=== PATIENT | male | born 1980 | race Caucasian/White ===

== ENCOUNTER 2020-10-29 10:12 | Emergency (ER) | payer OTHER ==
[~2020-10-29] VITALS: Ht 177.8 cm; Wt 300.0 kg
[2020-10-29 11:27] LABS: BASO % 0 % (0-3); EOS # 0.2 x10^3/uL (0.0-0.7); EOS % 2 % (0-3); HEMOGLOBIN 8.7 g/dL (13.0-17.5); LYMPH # 0.8 x10^3/uL (1.0-4.8); LYMPH % 9 % (24-48); MEAN CORPUSCULAR HEMOGLOBIN 25 pg (25-35); MEAN CORPUSCULAR HGB CONC 31 g/dL (31-37); MEAN CORPUSCULAR VOLUME 80 fL (79-100); MONO # 0.6 x10^3/uL (0.0-1.1); MONO % 7 % (0-9); NEUT % 81 % (31-73); PLATELET COUNT 364 x10^3/uL (140-400); RED BLOOD COUNT 3.51 x10^6/uL (4.30-5.70); RED CELL DISTRIBUTION WIDTH 22.3 % (11.5-14.5); WHITE BLOOD COUNT 8.7 x10^3/uL (4.0-11.0)
[2020-10-29] MEDS ORDERED: NEOMY/BACITR/POLYMYXIN OINT PACKET. TP ONE (12:00)
[2020-10-29] MEDS ORDERED: MUPI1OIN6 TP (12:05)
--- NOTE | 2020-10-29 12:14 | PHYS DOC ---
Past History Past Medical History: Anemia, High Cholesterol, Hypertension, Other Additional Past Medical Histor: DVT, morbid obesity Past Surgical History: Cholecystectomy Smoking: Non-smoker Alcohol Use: None Drug Use: None General Adult EDM: Chief Complaint: LOWER EXT PAIN HPI: HPI: 40-year-old male presents via EMS with report of bleeding from pressure wounds to the back of his left thigh which started today. Patient is currently on preventative Coumadin with history of DVT. Nursing facility became concerned given bleeding from these wounds. Patient is morbidly obese and nonambulatory at baseline. Denies other symptoms. Review of Systems: Review of Systems: Constitutional: Denies fever or chills Eyes: Denies redness or eye pain HENT: Denies nasal congestion or sore throat Respiratory: Denies cough or shortness of breath Cardiovascular: Denies chest pain or palpitations GI: Denies abdominal pain, nausea, or vomiting : Denies dysuria or hematuria Musculoskeletal: Denies back pain; reports left leg pain Integument: Reports pressure ulcers to left posterior leg Neurologic: Denies headache, focal weakness or sensory changes Complete systems were reviewed and found to be within normal limits, except as documented in this note. Allergies: Allergies: Allergies Coded Allergies Type Severity Reaction Last Updated Verified vancomycin Allergy Unknown 10/29/20 Yes Physical Exam: PE: Constitutional: Well developed, morbidly obese, no acute distress, non-toxic appearance HENT: Normocephalic, atraumatic Eyes: Conjunctiva normal, no discharge Neck: Normal range of motion, supple Lungs & Thorax: No respiratory distress, equal chest rise and fall Skin: Warm, dry, pressure ulceration with left posterior leg, no active bleeding currently Extremities: Tenderness at site of pressure ulceration, DP and PT +2 Neurologic: Alert and oriented X 3, no focal deficits noted Psychologic: Affect normal, judgment normal Current Patient Data: Labs: Laboratory Tests Test 10/29/20 10:44 White Blood Count 8.7 x10^3/uL (4.0-11.0) Red Blood Count 3.51 x10^6/uL (4.30-5.70) L Hemoglobin 8.7 g/dL (13.0-17.5) L Hematocrit 28.0 % (39.0-53.0) L Mean Corpuscular Volume 80 fL (79-100) Mean Corpuscular Hemoglobin 25 pg (25-35) Mean Corpuscular Hemoglobin Concent 31 g/dL (31-37) Red Cell Distribution Width 22.3 % (11.5-14.5) H Platelet Count 364 x10^3/uL (140-400) Neutrophils (%) (Auto) 81 % (31-73) H Lymphocytes (%) (Auto) 9 % (24-48) L Monocytes (%) (Auto) 7 % (0-9) Eosinophils (%) (Auto) 2 % (0-3) Basophils (%) (Auto) 0 % (0-3) Neutrophils # (Auto) 7.0 x10^3uL (1.8-7.7) Lymphocytes # (Auto) 0.8 x10^3/uL (1.0-4.8) L Monocytes # (Auto) 0.6 x10^3/uL (0.0-1.1) Eosinophils # (Auto) 0.2 x10^3/uL (0.0-0.7) Basophils # (Auto) 0.0 x10^3/uL (0.0-0.2) Prothrombin Time 14.7 SEC (9.4-11.4) H Prothrombin Time INR 1.4 (0.9-1.1) H Activated Partial Thromboplast Time 30 SEC (23-33) Vital Signs: Vital Signs Date Time Temp Pulse Resp B/P (MAP) Pulse Ox O2 Delivery O2 Flow Rate FiO2 10/29/20 11:23 74 16 114/56 (75) 100 Nasal Cannula 3.0 10/29/20 10:25 101.4 EKG: EKG: [] Radiology/Procedures: Radiology/Procedures: [] Heart Score: C/O Chest Pain: N/A Course & Med Decision Making: Course & Med Decision Making Pertinent Lab studies reviewed. (See chart for details) Morbidly obese patient presents via EMS with report of bleeding from pressure ulcerations on the back of his left leg. Patient with history of use of Coumadin given history of DVT. Patient's vital signs stable. No active bleeding noted. No active infection appreciated. Afebrile. CBC with signs of anemia. Patient does report history of anemia. WBC within normal limits. INR subtherapeutic at 1.4. Wound dressed. Will prescribe antibiotic ointment for preventative treatment. Patient stable for discharge with outpatient follow-up with PCP. Discussed fin guidos and plan with patient, who acknowledges understanding and agreement. Willie Disclaimer: Willie Disclaimer: This electronic medical record was generated, in whole or in part, using a voice recognition dictation system. Departure Departure: Impression: Primary Impression: Pressure ulcer of lower extremity Qualified Codes: L89.899 - Pressure ulcer of other site, unspecified stage Additional Impression: Subtherapeutic anticoagulation Disposition: HOME / SELF CARE / HOMELESS (back to [facility] and rehab) Condition: STABLE Referrals: AAYUSH DAVIS MD (PCP) Patient Instructions: Anticoagulation, Generic, Pressure Ulcer Additional Instructions: Your Coumadin level is currently subtheraputic to 1.4. Please have your doctor adjust your medications and recheck level. Do not soak your wound. You may shower. Clean wound daily with soap and water. Change dressing 3 times daily using a nonadherent dressing. Use prescribed antibiotic ointment to prevent infection with each dressing change. You may benefit from follow up with a wound care doctor. [facility]: call [phone] for an appoin tment Scripts Mupirocin (Mupirocin) 1 Gm Oin.pf.mingo 1 MINGO TP TID for Pressure Ulcers for 7 Days, #22 GM 0 Refills apply to affected area(s) Prov: CHANTAL VEGA DO 10/29/20 CHANTAL VEGA DO Oct 29, 2020 12:14
[2020-10-29 12:17] LABS: ANISOCYTOSIS MOD; PLT ESTIMATE ADEQUATE (ADEQUATE)
[2020-10-29 14:01] VITALS: BP 116/61
== END 2020-10-29 15:24 | disposition home or self-care (01) ==
LOC: ER 10:12
DX: L89.899 Pressure ulcer of other site, unspecified stage (principal); E78.00 Pure hypercholesterolemia, unspecified; I10 Essential (primary) hypertension; E66.01 Morbid (severe) obesity due to excess calories; Z68.45 Body mass index [BMI] 70 or greater, adult; Z86.718 Personal history of other venous thrombosis and embolism; Z86.2 Personal history of diseases of the blood and blood-forming organs and certain disorders involving the immune mechanism; Z88.1 Allergy status to other antibiotic agents
CPT/HCPCS: 36415; 85025; 85610; 85730; 99284

== ENCOUNTER 2021-01-18 14:08 | Emergency (ER) | payer OTHER ==
[~2021-01-18] VITALS: Ht 167.6 cm; Wt 180.5 kg
[~2021-01-18 14:08] MED LIST: MUPI1OIN6 TP
[2021-01-18] MEDS ORDERED: IPRATRPIUM/ALBUTEROL 0.5/2.5MG 3 ML NEBU. NEB ONE ×2 (14:15)
--- NOTE | 2021-01-18 14:15 | PHYS DOC ---
Past History Past Medical History: Anemia, High Cholesterol, Hypertension, Other Additional Past Medical Histor: DVT, morbid obesity (LESTER BLANC DO) Past Surgical History: Cholecystectomy (LESTER BLANC DO) Smoking: Non-smoker Alcohol Use: None Drug Use: None (LESTER BLANC DO) General Adult EDM: Chief Complaint: SHORTNESS OF BREATH HPI: HPI: 40-year-old male past medical history of morbid obesity, hypertension, hyperlipidemia, anemia, lymphedema, congestive heart failure, bronchitis on 5LNC at baseline and chronic DVT on Coumadin, presents the ED brought in by EMS from [facility] with concern for low oxygen level, requiring BiPAP on arrival. Patient planes of shortness of breath but states the BiPAP has improved his symptoms. Was vaccinated for Covid with change of vaccine. Normally follows at [facility]. [facility] papers were reviewed and patient was started on doxycycline yesterday for a rash to his posterior thighs. (LESTER BLANC DO) Review of Systems: Review of Systems: Constitutional: Denies fever or chills Eyes: Denies change in visual acuity HENT: Denies nasal congestion or sore throat Respiratory: Denies cough or hemoptysis Cardiovascular: Denies chest pain or edema GI: Denies nausea or vomiting : Denies dysuria or hematuria Musculoskeletal: Denies back pain or joint pain Integument: Denies diaphoresis or desquamation Neurologic: Denies headache, focal weakness or sensory changes Endocrine: Denies polyuria or polydipsia Lymphatic: Denies swollen glands Psychiatric: Denies depression or anxiety (LESTER BLANC DO) Allergies: Allergies: Allergies Coded Allergies Type Severity Reaction Last Updated Verified vancomycin Allergy Unknown 10/29/20 Yes (LESTER BLANC DO) Physical Exam: PE: Constitutional: On BiPAP, no respiratory distress, saturating in the 90s, morbid obesity, afebrile HENT: Normocephalic, atraumatic, Eyes: EOMI, conjunctiva normal, no discharge. Neck: Normal range of motion, supple, Cardiovascular: S1/2 present, regular rhythm Lungs & Thorax: Speaking in full sentences, bilateral equal chest rise, no tachypnea or increased work of breathing Abdomen: soft, no tenderness, large ventral hernia approximately 12 x 12 cm Skin: Warm, dry, Extremities: No tenderness, no cyanosis, significant bilateral lymphedema Neurologic: Alert and oriented X 3, normal motor function, normal sensory function, no focal deficits noted. [] Psychologic: Affect normal, judgement normal, mood normal. [] (LESTER BLANC DO) EKG: EKG: Sinus rhythm 80 bpm, no axis deviation, QTC 463, no T wave inversion, no ST elevation or ST depression, no active chest pain (LESTER BLANC DO) Radiology/Procedures: Radiology/Procedures: IMAGING REPORT Signed PATIENT: MELE NICOLE LACCOUNT: [id number] : 1980 LOCATION: ER AGE: 40 SEX: M EXAM STATUS: REG ER ORD. PHYSICIAN: LESTER BLANC DO REASON: soa PROCEDURE: PORTABLE CHEST 1V PROCEDURE: XR CHEST 1V.01/18/2021 3:27 PM REASON FOR STUDY: Reason: soa / Spl. Instructions: / History: . COMPARISON: None. FINDINGS: Evaluation is limited by a large amount of overlying soft tissues. Allowing for this, there appears to be fairly extensive infiltrate through the right lung. The upper left lung appears relatively clear, but the left base is poorly seen. The heart is likely at least mildly enlarged. IMPRESSION: Limited study showing diffuse infiltrates, at least on the right side. Electronically signed by: Balta Iglesias Jr., MD (01/18/2021 3:28 PM) [id number] DICTATED AND SIGNED BY: BALTA IGLESIAS Jr, MD DATE: 01/18/21 1527 CC: AAYUSH DAVIS MD; LESTER BLANC DO ~MTH0 0 (LESTER BLANC DO) Heart Score: C/O Chest Pain: No Risk Factors: Risk Factors: DM, Current or recent (<one month) smoker, HTN, HLP, family history of CAD, obesity. Risk Scores: Score 0 - 3: 2.5% MACE over next 6 weeks - Discharge Home Score 4 - 6: 20.3% MACE over next 6 weeks - Admit for Clinical Observation Score 7 - 10: 72.7% MACE over next 6 weeks - Early Invasive Strategies (LESTER BLANC DO) Course & Med Decision Making: Course & Med Decision Making Pertinent Labs and Imaging studies reviewed. (See chart for details) Concern for hypercapnic respiratory failure, requiring BiPAP with suspected multifocal pneumonia. Therapeutic INR and normocytic anemia on labs. Will admit for further medical management. Patient in guarded condition. Patient stable at time of admission and agrees with plan. I have spoken with the patient and/or caregivers. I have explained the patient's condition, diagnosis and treatment plan based on the information available to me at this time. I have answered the patient's and/or caregivers questions and answered any concerns. The patient and/or caregivers have as good an understanding of the patient's diagnosis, condition and treatment plan as can be expected at this point. The patient has been stabilized within the capability of the emergency department. The patient will be transported for further care and management or will be moved to an observation or inpatient service. I have communicated with the staff or medical practitioner taking over this patient's care. (LESTER BLANC DO) Course & Med Decision Making See Dr. Blanc chart for details prior shift change. Pt. eventually transfered to [facility] without incident. Impression: 1. Respiratory Failure- Hypercarbic/ Hypoxia 2. Leukocytosis 12.1 3. Anemia hemoglobin 9.7 4. Morbid obesity (RAJENDRA SHIPLEY MD) Dragon Disclaimer: Dragon Disclaimer: This electronic medical record was generated, in whole or in part, using a voice recognition dictation system. (LESTER BLANC DO) Departure Departure: Impression: Primary Impression: Hypercapnic respiratory failure Additional Impressions: HCAP (healthcare-associated pneumonia) Normocytic anemia Disposition: [facility] (to [facility]) Admitting Physician: Mary Samayoa (LESTER BLANC DO) Condition: GUARDED Referrals: AAYUSH DAVIS MD (PCP) LESTER BLANC DO Jan 18, 2021 14:15 RAJENDRA SHIPLEY MD Jan 19, 2021 05:22
[2021-01-18] MEDS: DEXAMETHASONE SOD PHOS 10 MG/ML VIAL. IV ONE (14:39)
[2021-01-18] MEDS: IV NORMAL SALINE 1,000ML 1,000 ML IV SCH (14:40)
[2021-01-18 14:56] LABS: BGAS PH 7.31 (7.35-7.46)
[2021-01-18 14:59] LABS: BASO # 0.1 x10^3/uL (0.0-0.2); BASO % 1 % (0-3); EOS # 0.1 x10^3/uL (0.0-0.7); EOS % 1 % (0-3); HEMATOCRIT 31.8 % (39.0-53.0); HEMOGLOBIN 9.7 g/dL (13.0-17.5); LYMPH % 9 % (24-48); MEAN CORPUSCULAR HEMOGLOBIN 25 pg (25-35); MEAN CORPUSCULAR HGB CONC 31 g/dL (31-37); MEAN CORPUSCULAR VOLUME 80 fL (79-100); MONO # 0.8 x10^3/uL (0.0-1.1); MONO % 6 % (0-9); NEUT # 10.1 x10^3uL (1.8-7.7); NEUT % 83 % (31-73); PLATELET COUNT 407 x10^3/uL (140-400); RED BLOOD COUNT 3.97 x10^6/uL (4.30-5.70); RED CELL DISTRIBUTION WIDTH 19.3 % (11.5-14.5); WHITE BLOOD COUNT 12.1 x10^3/uL (4.0-11.0)
[2021-01-18 15:03] LABS: CALCIUM 8.4 mg/dL (8.5-10.1); CREATININE 0.6 mg/dL (0.7-1.3)
[2021-01-18 15:09] VITALS: BP 165/82
[2021-01-18 15:16] LABS: ALBUMIN/GLOBULIN RATIO 0.7 (1.0-1.7); TOTAL BILIRUBIN 0.8 mg/dL (0.2-1.0); TOTAL PROTEIN 7.4 g/dL (6.4-8.2)
--- NOTE | 2021-01-18 15:30 | RAD ---
PROCEDURE: XR CHEST 1V.01/18/2021 3:27 PM REASON FOR STUDY: Reason: soa / Spl. Instructions: / History: . COMPARISON: None. FINDINGS: Evaluation is limited by a large amount of overlying soft tissues. Allowing for this, there appears to be fairly extensive infiltrate through the right lung. The upper left lung appears relati vely clear, but the left base is poorly seen. The heart is likely at least mildly enlarged. IMPRESSION: Limited study showing diffuse infiltrates, at least on the right side. Electronically signed by: Elbert Iglesias Jr., MD (01/18/2021 3:28 PM) [id number]
[2021-01-18] MEDS: IPRATRPIUM/ALBUTEROL 0.5/2.5MG 3 ML NEBU. NEB ONE (15:37)
[2021-01-18 15:38] LABS: BILIRUBIN,URINE NEG (NEG); CLARITY,URINE CLEAR; COLOR,URINE YELLOW; GLUCOSE,URINE NEG (NEG)
[2021-01-18 15:39] LABS: BACTERIA,URINE 0 /HPF (0-FEW); NITRITE,URINE NEG (NEG); SQUAMOUS EPITHELIAL CELL,UR OCC /LPF; UROBILINOGEN,URINE 0.2 mg/dL (0.2 mg/dL); WBC,URINE 0 /HPF (0-4)
--- NOTE | 2021-01-18 15:49 | EKG ---
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
[2021-01-18 15:51] LABS: % BANDS 4 % (0-9); % EOS 1 % (0-5); % LYMPHS 11 % (24-48); % MONOS 6 % (0-10); % SEGS 78 % (35-66)
[2021-01-18 15:52] LABS: ANISOCYTOSIS SLIGHT; HYPOCHROMIA SLIGHT; PLT ESTIMATE INCREASED (ADEQUATE); POLYCHROMASIA SLIGHT; STOMATOCYTES FEW; TOXIC GRANULATION SLIGHT
[2021-01-18 16:30] LABS: BGAS PH 7.32 (7.35-7.46)
[2021-01-18] MEDS ORDERED: PIPERACILLIN/TAZOBACTAM 4.5 GM VIAL IV ONE (16:45)
[2021-01-18] MEDS ORDERED: IV NORMAL SALINE 50ML 50 ML ONE (16:45)
[2021-01-18] MEDS: FUROSEMIDE 40 MG/4 ML VIAL IVP ONE (16:45)
[2021-01-18] MEDS: PIPERACILLIN/TAZOBACTAM 4.5 GM in IV NORMAL SALINE 50ML 50 ML IV ONE (17:05)
[2021-01-18] MEDS: CIPROFLOXACIN 400MG PREMIX 200 ML IV ONE (17:07)
[2021-01-18] MEDS ORDERED: AZTREONAM 2 GM in IV NORMAL SALINE 100ML 100 ML IV SCH (18:00)
== END 2021-01-19 00:15 | disposition short-term general hospital (02) ==
LOC: ER 14:08
DX: J96.92 Respiratory failure, unspecified with hypercapnia (principal); J18.9 Pneumonia, unspecified organism; D64.9 Anemia, unspecified; D72.829 Elevated white blood cell count, unspecified; E66.01 Morbid (severe) obesity due to excess calories; E78.00 Pure hypercholesterolemia, unspecified; I11.0 Hypertensive heart disease with heart failure; I50.9 Heart failure, unspecified; Z86.2 Personal history of diseases of the blood and blood-forming organs and certain disorders involving the immune mechanism; Z86.718 Personal history of other venous thrombosis and embolism; Z68.44 Body mass index [BMI] 60.0-69.9, adult; Z88.1 Allergy status to other antibiotic agents
CPT/HCPCS: 36415; 36600; 71045; 80053; 81001; 82803; 83605; 83880; 84484; 85007; 85025; 85610; 85730; 87040; 87426; 93005; 94640; 94660; 96361; 96365; 96366; 96375; 99285; C9803; J0744; J1100; J2543; J7030; U0003

== ENCOUNTER 2021-02-18 15:39 | Emergency (ER) | payer OTHER ==
[~2021-02-18] VITALS: Ht 167.6 cm; Wt 300.0 kg
[2021-02-18] MEDS ORDERED: DEXAMETHASONE SOD PHOS 10 MG/ML VIAL. IVP ONE (16:00)
--- NOTE | 2021-02-18 16:17 | RAD ---
Exam: Chest one view INDICATION: Shortness of breath TECHNIQUE: Frontal view of the chest Comparisons: 03/29/2021 FINDINGS: Exam limited secondary to body habitus. Patchy bilateral airspace disease, increased from prior exam. IMPRESSION: Limited exam. Worsening bilateral airspace disease. Electronically signed by: Calderon José MD (02/18/2021 4:14 PM) JENY
--- NOTE | 2021-02-18 16:18 | EKG ---
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
--- NOTE | 2021-02-18 16:28 | PHYS DOC ---
Past History Past Medical History: Anemia, CHF, GERD, High Cholesterol, Hypertension, Pneumonia, Other Additional Past Medical Histor: DVT, morbid obesity, sleep apnea (CHANTAL VEGA DO) Past Surgical History: Cholecystectomy (CHANTAL VEGA DO) Smoking: Non-smoker Alcohol Use: None Drug Use: None (CHANTAL VEGA DO) General Adult EDM: Chief Complaint: SHORTNESS OF BREATH HPI: HPI: 40-year-old male who is morbidly obese with past medical history of sleep apnea, CHF, DVT, and morbid obesity presents from [facility] with report of progressive shortness of breath over the last few days. Patient reportedly diagnosed with pneumonia based on chest x-ray at snf and started on empiric antibiotics. Patient has been taking Coumadin for history of DVT. Patient reports compliance with this medication. EMS reports patient has increased in his weight to 880lbs. reports some cough. (CHANTAL VEGA DO) Review of Systems: Review of Systems: Constitutional: Denies fever or chills Eyes: Denies redness or eye pain HENT: Denies nasal congestion or sore throat Respiratory: Reports cough and shortness of breath Cardiovascular: Denies chest pain or palpitations GI: Denies abdominal pain, nausea, or vomiting Integument: Denies rash or skin lesions Neurologic: Denies headache, focal weakness or sensory changes Complete systems were reviewed and found to be within normal limits, except as documented in this note. (CHANTAL VEGA DO) Current Medications: Current Meds: Current Medications Medications (Trade) Dose Ordered Sig/Briana Start Time Stop Time Status Last Admin Dose Admin Dexamethasone Sodium Phosphate (Decadron) 10 mg 1X ONCE 02/18/21 16:00 02/18/21 16:01 DC 02/18/21 16:19 10 MG (CHANTAL VEGA DO) Allergies: Allergies: Allergies Coded Allergies Type Severity Reaction Last Updated Verified vancomycin Allergy Unknown 10/29/20 Yes (CHANTAL VEGA DO) Physical Exam: PE: Constitutional: Morbid obesity, mild distress HENT: Normocephalic, atraumatic Eyes: Conjunctiva normal, no discharge Neck: Limited ROM due to size, supple Lungs & Thorax: Mild respiratory distress, equal chest rise and fall, distant breath sounds Cardiovascular: Radial pulses +2, 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 Patchy bilateral airspace disease, increased from prior exam. IMPRESSION: Limited exam. Worsening bilateral airspace disease. Electronically signed by: Calderon José MD (02/18/2021 4:14 PM) JENY (CHANTAL VEGA DO) Heart Score: C/O Chest Pain: N/A (CHANTAL VEGA DO) Course & Med Decision Making: Course & Med Decision Making Pertinent Labs and Imaging studies reviewed. (See chart for details) Morbidly obese patient presents from snf with report of progressive shortness of breath and recent diagnosis of pneumonia based on x-ray. Patient reports worsening today with drop in O2 sats despite supplemental O2. EMS reports O2 down to 80s%. Improved with increased supplemental oxygen. EKG stable. Labs obtained and posted to chart. WBC and lactic acid within normal limits. Rapid Covid testing negative. Chest x-ray limited secondary to size. Given history of pneumonia and chest x-ray findings empiric antibiotic treatment continued. Blood cultures pending. ABG with CO2 retention with compensation. BiPAP initiated. Patient requiring transfer for admission to higher level facility for further evaluation and treatment. Discussed with Dr. Samayoa (hospitalist) who is in agreement with admission to [facility]. Discussed findings and plan with patient, who acknowledges understanding and agreement. Unable to find bariatric transport for patient to be moved to [place]. Continue to await transport. COVID PCR positive. 02/19/21 0600- Sign out given to Dr. Burk. (CHANTAL VEGA DO) Course & Med Decision Making I assumed care of patient after comprehensive signout from off going physician I reviewed entirety of ER work-up so far. I personally saw patient repeating certain aspects of history and physical exam. I agree need for hospital transfer Patient pending hospital transfer at start of my shift. No noteworthy complications arose prior to hospital transfer to [facility] that was previously scheduled prior to my arrival (PACO BURK DO) Dragon Disclaimer: Willie Disclaimer: This electronic medical record was generated, in whole or in part, using a voice recognition dictation system. (CHANTAL VEGA DO) Departure Departure: Impression: Primary Impression: Hypercapnic respiratory failure Qualified Codes: J96.22 - Acute and chronic respiratory failure with hypercapnia Additional Impressions: Morbid obesity Hypertension Qualified Codes: I10 - Essential (primary) hypertension COVID-19 Disposition: 02 SHORT TERM HOSPITAL (transfer to [facility]- Dr. Samayoa accepting) Admitting Physician: Mary Samayoa (CHANTAL VEGA DO) Condition: GUARDED Referrals: AAYUSH DAVIS MD (PCP) Critical Care Time Critical care time was 30 minutes which includes time at bedside, spent in discussion of patient's care with specialists and/or family members, with interpretation of laboratory and/or radiological studies and is exclusive of procedures. (CHANTAL VEGA DO) CHANTAL VEGA DO Feb 18, 2021 16:28 PACO BURK DO Feb 20, 2021 06:07
[2021-02-18 16:32] LABS: BASO # 0.1 x10^3/uL (0.0-0.2); BASO % 1 % (0-3); EOS # 0.3 x10^3/uL (0.0-0.7); EOS % 3 % (0-3); HEMATOCRIT 30.6 % (39.0-53.0); HEMOGLOBIN 9.2 g/dL (13.0-17.5); LYMPH % 10 % (24-48); MEAN CORPUSCULAR HEMOGLOBIN 24 pg (25-35); MEAN CORPUSCULAR HGB CONC 30 g/dL (31-37); MEAN CORPUSCULAR VOLUME 79 fL (79-100); MONO # 0.6 x10^3/uL (0.0-1.1); MONO % 6 % (0-9); NEUT # 7.7 x10^3uL (1.8-7.7); NEUT % 81 % (31-73); PLATELET COUNT 426 x10^3/uL (140-400); RED BLOOD COUNT 3.88 x10^6/uL (4.30-5.70); RED CELL DISTRIBUTION WIDTH 18.9 % (11.5-14.5); WHITE BLOOD COUNT 9.5 x10^3/uL (4.0-11.0)
[2021-02-18 16:54] LABS: CALCIUM 8.8 mg/dL (8.5-10.1); CREATININE 0.6 mg/dL (0.7-1.3); POTASSIUM 4.8 mmol/L (3.5-5.1)
[2021-02-18 17:12] LABS: ALBUMIN 2.5 g/dL (3.4-5.0); ALBUMIN/GLOBULIN RATIO 0.5 (1.0-1.7); TOTAL BILIRUBIN 0.7 mg/dL (0.2-1.0); TOTAL PROTEIN 7.4 g/dL (6.4-8.2)
[2021-02-18] MEDS ORDERED: PIPERACILLIN/TAZOBACTAM 4.5 GM in IV NORMAL SALINE 50ML 50 ML IV ONE (17:45)
[2021-02-18] MEDS ORDERED: PIPERACILLIN/TAZOBACTAM 4.5 GM VIAL IV ONE (18:05)
[2021-02-18] MEDS ORDERED: IV NORMAL SALINE 50ML 50 ML ONE (18:05)
[2021-02-18 18:08] LABS: BGAS PH 7.37 (7.35-7.46)
[2021-02-19 00:33] LABS: BGAS PH 7.37 (7.35-7.46)
[2021-02-19] MEDS ORDERED: LABETALOL 20 MG/4 ML DISP.SYRIN. IVP ONE (06:00)
[2021-02-19] MEDS ORDERED: PIPERACILLIN/TAZOBACTAM 3.375 GM in IV NORMAL SALINE 50ML 50 ML IV SCH (09:15)
[2021-02-19] MEDS ORDERED: oxyCODONE IR 5 MG TABLET PO PRN (09:15)
[2021-02-19] MEDS ORDERED: IV NORMAL SALINE 50ML 50 ML ONE (09:47)
[2021-02-19] MEDS ORDERED: PIPERACILLIN/TAZOBACTAM 3.375 GM VIAL IV ONE (09:48)
[2021-02-19 11:24] VITALS: BP 193/72
== END 2021-02-19 12:15 | disposition short-term general hospital (02) ==
LOC: ER 15:39
DX: U07.1 COVID-19 (principal); J96.22 Acute and chronic respiratory failure with hypercapnia; E66.01 Morbid (severe) obesity due to excess calories; I11.0 Hypertensive heart disease with heart failure; I50.9 Heart failure, unspecified; E78.00 Pure hypercholesterolemia, unspecified; Z68.45 Body mass index [BMI] 70 or greater, adult; Z86.2 Personal history of diseases of the blood and blood-forming organs and certain disorders involving the immune mechanism; Z86.718 Personal history of other venous thrombosis and embolism; Z90.49 Acquired absence of other specified parts of digestive tract; Z88.1 Allergy status to other antibiotic agents
CPT/HCPCS: 36415; 36600; 71045; 80053; 82553; 82803; 83605; 83735; 83880; 84484; 85025; 85610; 85730; 87040; 87426; 93005; 94660; 96365; 96367; 96375; 99291; J1100; J2543; U0003